=== PATIENT | female | born 1995 | race Caucasian/White ===

== ENCOUNTER 2016-07-06 12:30 | Day surgery (SDC) | payer BC, OTHER ==
--- NOTE | 2016-07-06 10:41 | HP ---
Teena Avelar DATE OF SURGERY: 07/06/2016 PREOPERATIVE DIAGNOSIS: Missed . OPERATION PLANNED: Suction dilation and curettage. HISTORY: The patient is a 20-year-old 1, para 0 woman with an estimated date of confinement of 01/18/2017 currently at 11 weeks gestation. She came in last week for a routine visit. An ultrasound showed that the fetus was no longer alive and it stopped growing at 9-1/2 weeks. She wanted to have a dilation and curettage scheduled for today. PAST MEDICAL HISTORY: Denies major medical problems. PAST SURGICAL HISTORY: None. ALLERGIES: None. CURRENT MEDICATIONS: Citalopram 20 mg. SOCIAL HISTORY: Patient does not smoke. She lives with her boyfriend. Speaks Serbian. FAMILY HISTORY: No significant family history. REVIEW OF SYSTEMS: Patient denies any fever, chills, dysuria, nausea, vomiting. PHYSICAL EXAMINATION: GENERAL: She is a healthy appearing woman. VITAL SIGNS: She weighs 195, blood pressure 110/64. HEENT: Normal. LUNGS: Clear. HEART: Normal S1 and S2. ABDOMEN: Soft, nontender, no guarding, no rebound. PELVIC: External genitalia and vagina are normal. Cervix tender. Uterus is 8 to 10 weeks size. Adnexa negative. IMPRESSION: This is a patient with a missed at 9-1/2 weeks. PLAN: To do a suction dilation and curettage. Additional note, patient's blood type is A negative. JOB: [id number]
[2016-07-06] MEDS ORDERED: LACTATED RINGERS 1,000 ML ONE ×2 (13:03→15:34)
[2016-07-06] MEDS ORDERED: IV START KIT ONE (13:04)
[2016-07-06] MEDS ORDERED: LACTATED RINGERS 1,000 ML IV SCH ×2 (13:30→15:00)
[2016-07-06 13:40] LABS: HEMATOCRIT 39.4 % (37.0-47.0); HEMOGLOBIN 12.8 gm/l (12.0-16.0); MEAN CELL VOLUME 92.1 fl (81.0-99.0); MEAN CORPUSCULAR HEMOGLOBIN 29.9 pg (27.0-31.0); MEAN CORPUSCULAR HGB CONC 32.5 g/dl (33.0-37.0); RED CELL DISTRIBUTION WIDTH 12.2 % (11.5-14.5)
[2016-07-06 14:22] LABS: BLOOD UREA NITROGEN 8 mg/dL (7-25); BUN/CREATININE RATIO 16 (6-20); CALCIUM 9.2 mg/dL (8.6-10.3)
[2016-07-06] MEDS ORDERED: DEXAMETHASONE SOD PHOS 4 MG/1 ML VIAL ONE (14:28)
[2016-07-06] MEDS ORDERED: ONDANSETRON 4 MG/2ML 2 ML VIAL ONE (14:28)
[2016-07-06] MEDS ORDERED: PROPOFOL 20 ML IV ONE (14:28)
[2016-07-06] MEDS ORDERED: FENTANYL 100 MCG/2 ML VIAL ONE ×2 (14:29→15:25)
[2016-07-06] MEDS ORDERED: MIDAZOLAM HCL 1 MG/ML 2ML VIAL ONE (14:29)
[2016-07-06] MEDS ORDERED: ONDANSETRON 4 MG/2ML 2 ML VIAL IV PRN ×2 (14:58→15:45)
[2016-07-06] MEDS ORDERED: NALOXONE HCL 0.4 MG/ML VIAL IV PRN (14:58)
[2016-07-06] MEDS ORDERED: HYDROMORPHONE HCL 1 MG/ML SYRINGE IV PRN (14:58)
[2016-07-06] MEDS ORDERED: ATROPINE SULFATE 0.4 MG/1 ML VIAL IV PRN (14:58)
[2016-07-06] MEDS ORDERED: MEPERIDINE 25 MG/ML SYRINGE IV PRN (14:58)
[2016-07-06] MEDS ORDERED: LABETALOL HCL 5 MG/ML 20ML VIAL IV PRN (14:58)
[2016-07-06] MEDS ORDERED: HYDRALAZINE HCL 20 MG/1 ML VIAL IV PRN (14:58)
[2016-07-06] MEDS ORDERED: PROMETHAZINE HCL 25 MG/ML VIAL IM PRN (14:58)
[2016-07-06] MEDS ORDERED: OXYTOCIN 10 UNITS/ML VIAL ONE (15:01)
[2016-07-06] MEDS ORDERED: RHOGAM 300 MCG SYRINGE IM ONE (15:15)
[2016-07-06] MEDS: FENTANYL 100 MCG/2 ML VIAL IV PRN ×2 (15:26→15:36)
[2016-07-06] MEDS ORDERED: KETOROLAC TROMETHAMINE 30 MG/ML 1 ML VIAL IV PRN (15:45)
[2016-07-06] MEDS ORDERED: MORPHINE SULFATE 2 MG/ML SYRINGE IV PRN (15:45)
[2016-07-06] MEDS ORDERED: D5 1/2NS 1,000 ML IV SCH (15:45)
[2016-07-06] MEDS ORDERED: HYDROCODONE/ACETAMINOPHEN 5/325MG TABLET PO PRN (15:45)
[2016-07-06] MEDS ORDERED: MORPHINE SULFATE 4 MG/ML SYRINGE IV PRN (15:53)
[2016-07-06] MEDS ORDERED: MORPHINE SULFATE 10 MG/ML SYRINGE IV PRN (15:53)
[2016-07-06] MEDS ORDERED: MORPHINE SULFATE 2 MG/ML SYRINGE ONE (15:59)
[2016-07-06] MEDS ORDERED: HYDROCODONE/ACETAMINOPHEN 5/325MG TABLET ONE (16:14)
--- NOTE | 2016-07-06 18:51 | OP ---
STEVO SHIPLEY DATE OF OPERATION: July 06, 2016 PREOPERATIVE DIAGNOSIS: Missed . POSTOPERATIVE DIAGNOSIS: Missed . OPERATION PERFORMED: SUCTION DILATION AND CURETTAGE. DETAILS OF PROCEDURE: The patient was taken to the operating room, and general anesthesia was administered. She was placed in the dorsal lithotomy position, prepped and draped in the usual sterile fashion. Bimanual exam showed a ten-week size uterus with the cervix basically closed. The anterior lip of the cervix was grasped with a tenaculum, the uterus sounded to 10 cm. The cervix was progressively dilated to a size #8 Hegar dilator and a size 8 curette was used to curettage the uterine cavity producing a large amount of fluid. There was still tissue there. I dilated her to 9 cm and then a used a 9 cm curved curette to remove all the rest of the tissue. A sharp curet was used gently to make sure that the uterus was left clean and empty. Hemostasis was good. All instruments were removed. The patient tolerated the procedure well and was taken to the recovery room in stable condition. All sponge, instrument and needle counts were correct. The estimated blood loss was 50 mL. cc: Paul Pinto M.D.
--- NOTE | 2016-07-09 14:53 | SURGPATH ---
[facility] [address] [place] [id number] Patient Name: STEVO SHIPLEY MR#: [id number] : 1995 Gender: F Specimen #: [id number] Collected: 07/06/2016 Received: 07/08/2016 Reported: 07/09/2016 Submitting Phys: HUYEN MEREDITH Copy To Phys: MARCIN RAMIREZ [facility] Clinical History / Pre-Operative Diagnosis: MISSED AB Specimen Source / Surgical Procedure Performed: PRODUCTS OF CONCEPTION Interpretation: PRODUCTS OF CONCEPTION: - CHORIONIC VILLI IDENTIFIED Electronically Signed Out Pollo Campos M.D. Gross Description: The specimen is received in a formalin filled container labeled with the patient's name and "products of conception". An aggregate of mc tissue admixed with hemorrhagic material is 7.5 x 6.0 x 3.0 cm. Included is a small amount of spongy, membranous, placenta-like tissue. There is no grossly recognizable tissue. Three personal financial representative sections are submitted in one cassette. Abraham Ricardo Microscopic Description: A slide contains decidualized stroma and immature chorionic villi. tissues are not seen. 1: 12179 O02.1
== END 2016-07-06 17:33 | disposition home or self-care (01) ==
LOC: SDC 12:30
PROVIDERS: ATTEND Obstetrics & Gynecology
PROC: 10D17ZZ Extraction of Products of Conception, Retained, Via Natural or Artificial Opening (ICD-10-PCS; principal; 2016-07-06)
DX: O02.1 Missed abortion (principal); Z3A.12 12 weeks gestation of pregnancy
CPT/HCPCS: 85027; 80048; 36415 ×2; 59820; J3010 ×2; J1100; J2270; J2590; J2250; J2405; J7120 ×2; A9270

== ENCOUNTER 2016-09-02 20:47 | Emergency (ER) | payer BC, OTHER ==
[2016-09-02] MEDS ORDERED: PANTOPRAZOLE SODIUM 40 MG VIAL IV ONE (21:19)
[2016-09-02 21:35] LABS: ABSOLUTE NEUTROPHIL COUNT 4.3 K/mm3 (1.8-7.7); BASO % 0.5 % (0.2-1.0); EOS # 0.2 (0.0-0.5); EOS % 1.8 % (0.9-2.9); HEMATOCRIT 36.9 % (37.0-47.0); HEMOGLOBIN 11.9 gm/l (12.0-16.0); IMM NEUT% 0.5 % (0-1); LYMPH # 3.4 (1.0-4.8); LYMPH % 39.7 % (15-45); MEAN CELL VOLUME 91.6 fl (81.0-99.0); MEAN CORPUSCULAR HEMOGLOBIN 29.5 pg (27.0-31.0); MEAN CORPUSCULAR HGB CONC 32.2 g/dl (33.0-37.0); MEAN PLATELET VOLUME 9.1 fl (7.4-10.4); MONO # 0.7 (0.0-0.8); MONO % 8.1 % (4-12); NEUT % 49.4 % (43-75); PLATELET COUNT 315 K/mm3 (130-400); RED CELL DISTRIBUTION WIDTH 12.2 % (11.5-14.5)
[2016-09-02 21:48] LABS: I-STAT CHLORIDE 101 mEq/L (101-111); I-STAT CREATININE 0.7 mg/dL (0.6-1.3); I-STAT GLUCOSE 108 mg/dL (70-105); I-STAT TCO2 31 mEq/L (21-31)
[2016-09-02 21:48] LABS: URINE BILIRUBIN NEGATIVE (NEGATIVE); URINE BLOOD 1+ (NEGATIVE); URINE GLUCOSE (UA) NEGATIVE (NEGATIVE); URINE LEUKOCYTE ESTERASE NEGATIVE (NEGATIVE); URINE NITRITE NEGATIVE (NEGATIVE); URINE PROTEIN NEGATIVE (NEGATIVE); URINE UROBILINOGEN NORMAL (0-1 mg/dl)
[2016-09-02 21:49] LABS: URINE APPEARANCE SL CLOUDY; URINE COLOR YELLOW
[2016-09-02 21:55] LABS: URINE RBC 0-1 /hpf
[2016-09-02 21:56] LABS: URINE WBC 0-1 /hpf
[2016-09-03 17:50] LABS: ALB/GLOB RATIO 1.4 (>1.0); ALBUMIN 3.9 gm/dL (3.5-5.7); ALT/SGPT 21 U/L (7-52); BLOOD UREA NITROGEN 10 mg/dL (7-25); BUN/CREATININE RATIO 14 (6-20); CALCIUM 9.3 mg/dL (8.6-10.3); LIPASE 28 U/L (11-82)
[2016-09-04 14:01] LABS: CHLAMYDIA BD Negative (Negative); N.GONORRHOEAE BD Negative (Negative); SOURCE Urine (())
== END 2016-09-02 22:00 | disposition home or self-care (01) ==
LOC: ED 20:47
DX: R10.11 Right upper quadrant pain (principal); F17.210 Nicotine dependence, cigarettes, uncomplicated
CPT/HCPCS: 83690; 87491; 87591; 85025; 80053; 81001; 99283 ×2; C9113

== ENCOUNTER 2016-10-02 06:24 | Emergency (ER) | payer OTHER ==
[2016-10-02] MEDS ORDERED: HYDROMORPHONE HCL 0.5 MG/0.5 ML SYRINGE ONE (06:54)
[2016-10-02] MEDS ORDERED: LACTATED RINGERS 1,000 ML ONE (06:54)
[2016-10-02] MEDS ORDERED: ONDANSETRON 4 MG/2ML 2 ML VIAL ONE (06:54)
[2016-10-02 06:58] LABS: HCG,QUALITATIVE URINE NEGATIVE
[2016-10-02 06:59] LABS: SPECIFIC GRAVITY 1.025 (1.001-1.030); URINE BILIRUBIN NEGATIVE (NEGATIVE); URINE BLOOD 1+ (NEGATIVE); URINE GLUCOSE (UA) NEGATIVE (NEGATIVE); URINE LEUKOCYTE ESTERASE NEGATIVE (NEGATIVE); URINE NITRITE NEGATIVE (NEGATIVE); URINE PROTEIN NEGATIVE (NEGATIVE); URINE UROBILINOGEN NORMAL (0-1 mg/dl)
[2016-10-02 07:00] LABS: URINE APPEARANCE CLEAR; URINE COLOR YELLOW
[2016-10-02 07:03] LABS: BASO % 0.4 % (0.2-1.0); EOS # 0.2 (0.0-0.5); EOS % 2.6 % (0.9-2.9); HEMATOCRIT 39.7 % (37.0-47.0); IMM NEUT% 0.3 % (0-1); LYMPH % 25.9 % (15-45); MEAN CELL VOLUME 89.8 fl (81.0-99.0); MEAN CORPUSCULAR HEMOGLOBIN 29.4 pg (27.0-31.0); MEAN CORPUSCULAR HGB CONC 32.7 g/dl (33.0-37.0); MEAN PLATELET VOLUME 9.2 fl (7.4-10.4); MONO # 0.6 (0.0-0.8); MONO % 7.5 % (4-12); NEUT % 63.3 % (43-75); PLATELET COUNT 301 K/mm3 (130-400); RED CELL DISTRIBUTION WIDTH 11.9 % (11.5-14.5)
[2016-10-02 07:05] LABS: URINE BACTERIA FEW; URINE MUCUS 1+; URINE WBC NEG /hpf
[2016-10-02 07:22] LABS: ALB/GLOB RATIO 1.7 (>1.0); ALBUMIN 4.3 gm/dL (3.5-5.7); ALT/SGPT 10 U/L (7-52); BLOOD UREA NITROGEN 13 mg/dL (7-25); BUN/CREATININE RATIO 22 (6-20); CALCIUM 9.3 mg/dL (8.6-10.3); LIPASE 22 U/L (11-82)
--- NOTE | 2016-10-02 07:39 | US ---
LIMITED ABDOMINAL ULTRASOUND HISTORY: Right upper quadrant pain. Limited sonography of the right upper quadrant performed. FINDINGS: GALLBLADDER LENGTH: 11.4 cm. GALLBLADDER WALL THICKNESS: 2 mm. GALLBLADDER CONTENT: No stones or sludge identified. SONOGRAPHIC VALVERDE'S SIGN: Not elicited. COMMON BILE DUCT CALIBER: 3 mm. REGIONAL FREE FLUID: None. IMPRESSION: Mildly distended gallbladder with otherwise normal sonographic appearance of the gallbladder. No findings of cholelithiasis, wall thickening, or biliary dilatation. Results were electronically transmitted to the electronic medical record at 10/02/2016 at 0734 hours
[2016-10-02] MEDS ORDERED: HYDROCODONE/ACETAMINOPHEN 5/325MG TABLET ONE (08:13)
== END 2016-10-02 08:43 | disposition home or self-care (01) ==
LOC: ED 06:24
DX: R10.11 Right upper quadrant pain (principal); R11.2 Nausea with vomiting, unspecified; F17.210 Nicotine dependence, cigarettes, uncomplicated
CPT/HCPCS: 83690; 81025; 85025; 80053; 81001; 76705; 96375; 99284 ×2; 96374; 96361; J2405; J7120; A9270; J1170

== ENCOUNTER 2016-10-26 10:35 | Day surgery (SDC) | payer OTHER ==
[2016-10-26] MEDS ORDERED: IV START KIT ONE (10:41)
[2016-10-26] MEDS ORDERED: LACTATED RINGERS 1,000 ML ONE (10:41)
[2016-10-26] MEDS ORDERED: LIDOCAINE Viscous 2% 15 ML UDCUP ONE (11:56)
[2016-10-26] MEDS ORDERED: PROPOFOL 60 ML IV ONE (11:57)
[2016-10-26] MEDS ORDERED: MIDAZOLAM HCL 1 MG/ML 2ML VIAL ONE (12:06)
[2016-10-26] MEDS ORDERED: LACTATED RINGERS 1,000 ML IV SCH ×2 (12:45)
[2016-10-26 17:09] LABS: HELICOBACTER PYLORII DETECTION NEGATIVE (NEGATIVE)
--- NOTE | 2016-10-29 12:54 | SURGPATH ---
[facility] [address] [place] [id number] Patient Name: STEVO SHIPLEY MR#: [id number] : 1995 Gender: F Specimen #: [id number] Collected: 10/26/2016 Received: 10/28/2016 Reported: 10/29/2016 Submitting Phys: SCOTT SLAUGHTER Copy To Phys[facility] Clinical History / Pre-Operative Diagnosis: CONSTIPATION, UNSPECIFIED; RUQ PAIN Specimen Source / Surgical Procedure Performed: #1-DUODENAL BIOPSY; #2-ANTRAL BIOPSY; #3-TERMINAL ILEUM BIOPSY; #4-RANDOM COLON BIOPSY Interpretation: 1. DUODENAL BIOPSY: - NO SIGNIFICANT PATHOLOGIC ABNORMALITIES IDENTIFIED. 2. ANTRAL BIOPSY: - NO SIGNIFICANT PATHOLOGIC ABNORMALITIES IDENTIFIED. 3. TERMINAL ILEUM BIOPSY: - NO SIGNIFICANT PATHOLOGIC ABNORMALITIES IDENTIFIED. 4. RANDOM COLON BIOPSY: - NO SIGNIFICANT PATHOLOGIC ABNORMALITIES IDENTIFIED. Electronically Signed Out Nadia Burns M.D. Gross Description: #1 The specimen is received in a formalin filled container labeled with the patient's name and "duodenal biopsy". A single mc biopsy is 0.4 cm. Totally embedded in cassette #1. #2 The specimen is received in a formalin filled container labeled with the patient's name and "antral biopsy". Two mc biopsies are 0.3 and 0.6 cm. Totally embedded in cassette #2. #3 The specimen is received in a formalin filled container labeled with the patient's name and "terminal ileum biopsy". Two mc biopsies are 0.3 and 0.5 cm. Totally embedded in cassette #3. #4 The specimen is received in a formalin filled container labeled with the patient's name and "random colon biopsy". Multiple mc biopsies are 0.1-0.4 cm. Totally embedded in cassette #4. Abraham Ricardo Microscopic Description: 1. Sections of the duodenal biopsy show benign duodenal mucosa with no significant pathologic changes. 2. Sections of the antral biopsy show benign antral mucosa with minimal, nonspecific edema and congestion of the lamina propria. No significant pathologic inflammation is identified. There is no evidence of intestinal metaplasia or mucosal atrophy. No Helicobacter organisms are appreciated on the routinely stained sections. 3. Sections of the terminal ileum biopsy show benign small bowel mucosa with no significant pathologic changes. 4. Sections of the random colon biopsy show multiple fragments of benign colonic mucosa. Scattered lymphoid aggregates are present in the lamina propria. No pathologic inflammation is identified. The collagen layer is not thickened. The superficial columnar epithelium is intact. There are no significant crypt architectural changes. 1: 86251 2: 30692 3: 23726 4: 48904 R10.11 K59.00
== END 2016-10-26 14:20 | disposition home or self-care (01) ==
LOC: SDC 10:35
PROVIDERS: ATTEND Surgery
PROC: 0DB98ZX Excision of Duodenum, Via Natural or Artificial Opening Endoscopic, Diagnostic (ICD-10-PCS; principal; 2016-10-26)
PROC: 0DB68ZX Excision of Stomach, Via Natural or Artificial Opening Endoscopic, Diagnostic (ICD-10-PCS; 2016-10-26)
PROC: 0DJD8ZZ Inspection of Lower Intestinal Tract, Via Natural or Artificial Opening Endoscopic (ICD-10-PCS; 2016-10-26)
DX: K58.1 Irritable bowel syndrome with constipation (principal); K81.9 Cholecystitis, unspecified; D64.9 Anemia, unspecified; F41.9 Anxiety disorder, unspecified; F17.210 Nicotine dependence, cigarettes, uncomplicated; K44.9 Diaphragmatic hernia without obstruction or gangrene
CPT/HCPCS: 87081; 43239; 45378; J2250; A9270; J7120